=== PATIENT | female | born 2005 | race African-American/Black ===

== ENCOUNTER 2024-04-04 18:20 | Emergency (ER) | payer MEDICAID ==
[~2024-04-04] VITALS: Ht 162.6 cm; Wt 59.0 kg
[2024-04-04 18:32] VITALS: O2SAT 100
[2024-04-04] MEDS ORDERED: IBUP-2029 MT (23:11)
[2024-04-04 23:37] VITALS: BP 131/77; PULSE 98; RESP 18; TEMP 36.94740; O2SAT 100
== END 2024-04-04 23:40 | disposition home or self-care (01) ==
LOC: ER 18:20
DX: D24.1 Benign neoplasm of right breast (principal)
CPT/HCPCS: 76641; 99284